=== PATIENT | female | born 1975 | race Caucasian/White ===

== ENCOUNTER 2016-07-17 21:19 | Emergency (ER) | payer OTHER ==
[~2016-07-17] VITALS: Ht 170.2 cm; Wt 144.1 kg
[2016-07-17 21:36] LABS: ADD MIUA? YES; BILIRUBIN NEGATIVE; BLOOD NEGATIVE; COLOR YELLOW ((YELLOW)); GLUCOSE (STRIP) NEGATIVE; KETONES NEGATIVE; LEUKOCYTES NEGATIVE; NITRITE NEGATIVE; PROTEIN (STRIP) NEGATIVE; SPECIFIC GRAVITY 1.014 (1.000-1.030); UROBILINOGEN 0.2 MG/DL (0.2-1.0)
[2016-07-17 21:43] LABS: BACTERIA RARE /HPF; EPITHELIAL CELLS 1+ /HPF; MUCUS TRACE /LPF; RED BLOOD CELLS 0-5 /HPF (0-5); UCUL ADDED? NO; WHITE BLOOD CELLS 0-5 /HPF (0-5)
[2016-07-17] MEDS ORDERED: ULTRAM50 MG PO (23:31)
[2016-07-17] MEDS ORDERED: FLEXERIL10 MG PO (23:31)
[2016-07-17] MEDS ORDERED: PREDNISONE10 MG PO (23:31)
[2016-07-18 00:13] VITALS: BP 126/72
== END 2016-07-18 00:23 | disposition home or self-care (01) ==
LOC: RME 21:19 → EME 21:19 → RME 07-18 00:23
DX: M54.42 Lumbago with sciatica, left side (principal); M62.830 Muscle spasm of back; I10 Essential (primary) hypertension; F17.200 Nicotine dependence, unspecified, uncomplicated
CPT/HCPCS: 81003; 99281; 99284; J1885

== ENCOUNTER 2016-12-12 09:42 | Emergency (ER) | payer OTHER ==
[~2016-12-12] VITALS: Ht 170.2 cm; Wt 136.8 kg
[~2016-12-12 09:42] MED LIST: FLEXERIL10 MG PO; PREDNISONE10 MG PO; ULTRAM50 MG PO
[2016-12-12 11:16] LABS: HEMATOCRIT 45.2 % (36.0-46.0); MCH 31.2 PG (29.0-34.0); MCHC 34.1 G/DL (30.0-36.0); MCV 91.5 FL (83-99); MEAN PLAT.VOLUME 10.8 uM^3 (9.5-12.4); PLATELET COUNT 236 K/uL (156-360); RBC DIS.WIDTH-CV 12.8 % (11.8-14.6); RBC DIS.WIDTH-SD 42.8 % (39-53); RED BLOOD COUNT 4.94 M/uL (3.80-5.20); WHITE BLOOD COUNT 5.9 K/uL (4.1-10.2)
[2016-12-12 11:25] LABS: CHLORIDE 109 mEq/L (99-109); POTASSIUM 4.1 mEq/L (3.7-5.4); SODIUM 141 mEq/L (136-147)
[2016-12-12 11:27] LABS: GLUCOSE 104 mg/dL (70-99)
[2016-12-12 11:28] LABS: ANION GAP 11 MEQ/L (2-14)
[2016-12-12 11:29] LABS: TOTAL BILIRUBIN 0.6 mg/dL (0.0-1.0)
[2016-12-12 11:31] LABS: ALKALINE PHOSPHATASE 57 IU/L (3-129); GFR ESTIMATE (CALCULATED) > 59 mL/min/
[2016-12-12 11:32] LABS: UREA NITROGEN (BUN) 13 mg/dL (9-23)
[2016-12-12 11:37] LABS: TROP-I INTERPRETATION NEGATIVE; TROPONIN-I < 0.01 ng/mL (0.0-0.30)
[2016-12-12 14:05] LABS: TROP-I INTERPRETATION NEGATIVE; TROPONIN-I < 0.01 ng/mL (0.0-0.30)
[2016-12-12 15:42] VITALS: BP 134/87
[2016-12-12] MEDS ORDERED: PRILOSEC OTC20 MG PO (15:44)
[2016-12-12] MEDS ORDERED: CARAFATE1 GM PO (15:44)
== END 2016-12-12 15:43 | disposition left against medical advice (07) ==
LOC: EME 09:42
PROVIDERS: Emergency Medicine
DX: R10.13 Epigastric pain (principal); R07.9 Chest pain, unspecified; R55 Syncope and collapse; R11.0 Nausea; R91.8 Other nonspecific abnormal finding of lung field; Z91.81 History of falling; F17.200 Nicotine dependence, unspecified, uncomplicated; Z83.2 Family history of diseases of the blood and blood-forming organs and certain disorders involving the immune mechanism; Z83.3 Family history of diabetes mellitus; Z53.20 Procedure and treatment not carried out because of patient's decision for unspecified reasons
CPT/HCPCS: 71020; 80053; 84484; 85027; 93005; 99281; 99285; J1885; J7030; S0028

== ENCOUNTER 2016-12-29 20:49 | Emergency (ER) | payer OTHER ==
[~2016-12-29] VITALS: Ht 170.2 cm; Wt 138.4 kg
[~2016-12-29 20:49] MED LIST changes: +CARAFATE1 GM PO; +PRILOSEC OTC20 MG PO
[2016-12-29 21:22] LABS: HEMATOCRIT 43.3 % (36.0-46.0); MCH 31.4 PG (29.0-34.0); MCHC 34.4 G/DL (30.0-36.0); MCV 91.2 FL (83-99); PLATELET COUNT 238 K/uL (156-360); RBC DIS.WIDTH-CV 12.5 % (11.8-14.6); RBC DIS.WIDTH-SD 41.5 % (39-53); RED BLOOD COUNT 4.75 M/uL (3.80-5.20); WHITE BLOOD COUNT 7.8 K/uL (4.1-10.2)
[2016-12-29 21:37] LABS: CHLORIDE 110 mEq/L (99-109); SODIUM 141 mEq/L (136-147)
[2016-12-29 21:39] LABS: GLUCOSE 102 mg/dL (70-99)
[2016-12-29 21:40] LABS: ANION GAP 9 MEQ/L (2-14)
[2016-12-29 21:41] LABS: TOTAL BILIRUBIN 0.4 mg/dL (0.0-1.0)
[2016-12-29 21:43] LABS: ALKALINE PHOSPHATASE 58 IU/L (3-129); GFR ESTIMATE (CALCULATED) > 59 mL/min/
[2016-12-29 21:44] LABS: UREA NITROGEN (BUN) 15 mg/dL (9-23)
[2016-12-29 21:55] LABS: QUANTITATIVE HCG < 4.0 MIU/ML
[2016-12-29 22:23] LABS: ADD MIUA? YES; BILIRUBIN NEGATIVE; BLOOD NEGATIVE; COLOR AMBER ((YELLOW)); GLUCOSE (STRIP) NEGATIVE; KETONES 5; LEUKOCYTES NEGATIVE; NITRITE NEGATIVE; PROTEIN (STRIP) 30; SPECIFIC GRAVITY 1.028 (1.000-1.030)
[2016-12-29 22:32] LABS: MUCUS TRACE /LPF; UCUL ADDED? NO; WHITE BLOOD CELLS 0-5 /HPF (0-5)
[2016-12-29 22:46] VITALS: BP 149/85
[2016-12-29 22:50] LABS: RED BLOOD CELLS 0-5 /HPF (0-5)
[2016-12-29 22:51] LABS: BACTERIA 1+ /HPF; CALCIUM OXALATE CRYSTALS 3+ /HPF; CASTS NONE SEEN /LPF; CRYSTALS PRESENT; EPITHELIAL CELLS 1+ /HPF
== END 2016-12-29 22:47 | disposition home or self-care (01) ==
LOC: EME 20:49
PROVIDERS: Physician Assistant
DX: R42 Dizziness and giddiness (principal); T50.995A Adverse effect of other drugs, medicaments and biological substances, initial encounter; I10 Essential (primary) hypertension; F90.9 Attention-deficit hyperactivity disorder, unspecified type; F17.200 Nicotine dependence, unspecified, uncomplicated; Z91.040 Latex allergy status
CPT/HCPCS: 80053; 81003; 84702; 85027; 93005; 99281; 99283

== ENCOUNTER 2017-07-04 22:26 | Emergency (ER) | payer OTHER ==
[~2017-07-04] VITALS: Ht 170.2 cm; Wt 120.9 kg
[2017-07-04 23:18] LABS: APPEARANCE CLEAR ((CLEAR)); BILIRUBIN NEGATIVE; BLOOD NEGATIVE; COLOR YELLOW ((YELLOW)); GLUCOSE (STRIP) NEGATIVE; KETONES 5; LEUKOCYTES NEGATIVE; NITRITE NEGATIVE; PROTEIN (STRIP) 30; SPECIFIC GRAVITY 1.031 (1.000-1.030); UROBILINOGEN 0.2 MG/DL (0.2-1.0)
[2017-07-05 00:06] VITALS: BP 154/96
== END 2017-07-05 00:13 | disposition home or self-care (01) ==
LOC: EME 22:26
PROVIDERS: Physician Assistant
DX: M54.42 Lumbago with sciatica, left side (principal); M43.16 Spondylolisthesis, lumbar region; F17.200 Nicotine dependence, unspecified, uncomplicated
CPT/HCPCS: 72100; 81003; 99281; 99284; J1885; J8540

== ENCOUNTER 2017-08-28 19:43 | Emergency (ER) | payer OTHER ==
[~2017-08-28] VITALS: Ht 170.2 cm; Wt 120.0 kg
[2017-08-28] MEDS ORDERED: BUPROPION XL150 MG PO (19:57)
[2017-08-28] MEDS ORDERED: VYVANSE50 MG PO (19:57)
[2017-08-28] MEDS ORDERED: AMLODIPINE BESY10 MG PO (19:57)
[2017-08-28] MEDS ORDERED: MIRAPEX1 MG PO (19:57)
[2017-08-28 20:41] LABS: BASOPHIL (%) 0.4 % (0-1); EOSINOPHIL (%) 1.3 % (0-5); EOSINOPHIL COUNT 0.1 K/uL (0-0.3); HEMATOCRIT 39.2 % (36.0-46.0); HEMOGLOBIN 13.8 G/DL (11.9-15.5); IMMATURE GRANULOCYTE (%) 0.4 % (0.0-0.7); LYMPHOCYTE (%) 13.9 % (15-42); LYMPHOCYTE COUNT 1.5 K/uL (1.0-2.8); MCH 32.8 PG (29.0-34.0); MCHC 35.2 G/DL (30.0-36.0); MCV 93.1 FL (83-99); MONOCYTE (%) 5.7 % (3-12); MONOCYTE COUNT 0.6 K/uL (0-0.8); NEUTROPHIL (%) 78.3 % (45-76); NEUTROPHIL COUNT 8.3 K/uL (1.8-6.4); PLATELET COUNT 241 K/uL (156-360); RBC DIS.WIDTH-CV 12.8 % (11.8-14.6); RBC DIS.WIDTH-SD 43.8 % (39-53); RED BLOOD COUNT 4.21 M/uL (3.80-5.20); WHITE BLOOD COUNT 10.6 K/uL (4.1-10.2)
[2017-08-28 20:52] LABS: APPEARANCE SL.HAZY ((CLEAR)); BILIRUBIN NEGATIVE; BLOOD LARGE; COLOR YELLOW ((YELLOW)); GLUCOSE (STRIP) NEGATIVE; KETONES 5; LEUKOCYTES NEGATIVE; NITRITE NEGATIVE; PROTEIN (STRIP) 30; SPECIFIC GRAVITY 1.023 (1.000-1.030)
[2017-08-28 21:01] LABS: CHLORIDE 105 mEq/L (99-109); POTASSIUM 3.3 mEq/L (3.7-5.4); SODIUM 142 mEq/L (136-147)
[2017-08-28 21:03] LABS: GLUCOSE 98 mg/dL (70-99)
[2017-08-28 21:07] LABS: CREATININE 0.7 mg/dL (0.6-1.3); GFR ESTIMATE (CALCULATED) > 59 mL/min/
[2017-08-28 21:08] LABS: UREA NITROGEN (BUN) 10 mg/dL (9-23)
[2017-08-28 21:30] LABS: EPITHELIAL CELLS 3+ /HPF; RED BLOOD CELLS TNTC /HPF (0-5); WHITE BLOOD CELLS 0-5 /HPF (0-5)
[2017-08-28 21:31] LABS: BACTERIA 2+ /HPF; MUCUS NONE SEEN /LPF; UCUL ADDED? YES
[2017-08-28] MEDS ORDERED: IBUPROFEN600 MG PO (22:54)
[2017-08-28 23:18] VITALS: BP 135/86
== END 2017-08-28 23:19 | disposition home or self-care (01) ==
LOC: EME → EDBD 19:43 → EME 19:43
PROVIDERS: Emergency Medicine
DX: N20.0 Calculus of kidney (principal); I10 Essential (primary) hypertension; F90.9 Attention-deficit hyperactivity disorder, unspecified type; F17.200 Nicotine dependence, unspecified, uncomplicated; Z87.442 Personal history of urinary calculi; Z91.040 Latex allergy status
CPT/HCPCS: 74176; 80048; 81003; 85025; 87086; 99281; 99285; J2270; J7030